=== PATIENT | male | born 1985 | race Two or more races ===

== ENCOUNTER 2017-09-01 14:40 | Emergency (ER) | payer SELFPAY ==
[~2017-09-01] VITALS: Ht 170.2 cm; Wt 73.4 kg
[2017-09-01 14:43] VITALS: BP 146/88
[2017-09-01] MEDS ORDERED: KEFLEX500 MG PO (17:21)
[2017-09-01] MEDS ORDERED: PERCOCET 5/31 TABLET PO (19:02)
== END 2017-09-01 19:17 | disposition home or self-care (01) ==
LOC: EME 14:40
DX: S61.213A Laceration without foreign body of left middle finger without damage to nail, initial encounter (principal); S66.123A Laceration of flexor muscle, fascia and tendon of left middle finger at wrist and hand level, initial encounter; W23.0XXA Caught, crushed, jammed, or pinched between moving objects, initial encounter; Z87.891 Personal history of nicotine dependence
CPT/HCPCS: 73130; 99281; 99283; S0020

== ENCOUNTER 2017-10-06 11:14 | Emergency (ER) | payer SELFPAY ==
[~2017-10-06] VITALS: Ht 172.7 cm; Wt 72.1 kg
[~2017-10-06 11:14] MED LIST: KEFLEX500 MG PO; PERCOCET 5/31 TABLET PO
[2017-10-06 13:10] VITALS: BP 147/73
== END 2017-10-06 14:12 | disposition home or self-care (01) ==
LOC: EXP 11:14 → EME 11:14 → EXP 14:12
DX: R03.0 Elevated blood-pressure reading, without diagnosis of hypertension (principal); F17.200 Nicotine dependence, unspecified, uncomplicated; Z71.6 Tobacco abuse counseling
CPT/HCPCS: 99281; 99283